=== PATIENT | female | born 1990 | race Caucasian/White ===

== ENCOUNTER 2016-07-30 22:23 | Emergency (ER) | payer MEDICAID, OTHER ==
[~2016-07-30] VITALS: Ht 165.1 cm; Wt 118.0 kg
[~2016-07-30 22:23] MED LIST: ACET325T40 PO; HYDR-3498 PO; PRENAT PO
[2016-07-30 22:41] VITALS: Ht 165.1 cm; Wt 118.0 kg
[2016-07-30] MEDS ORDERED: IBUP-1542 PO (23:27)
[2016-07-30] MEDS ORDERED: GUAI120S26 PO (23:27)
[2016-07-30] MEDS ORDERED: CETI10CA PO (23:27)
--- NOTE | 2016-07-31 | ERD ---
ER Documentation Chief Complaint Date/Time DATE: 07/30/16 TIME: 23:58 Chief Complaint SORE THROAT AND BILATERAL EAR PAIN X 1 WEEK HPI 6-year-old female presents here in emergency department for complaints of sore throat and bilateral ear pain, dry cough, for 1 week. Patient doesn't inject cough, does not cough up any phlegm or blood. Patient does not have any shortness breath or wheezing. Patient is complaining of sore throat, complaints of postnasal drip, burning pain, 4/10 scale, is worse upon swallowing. Patient is complaining of bilateral ear pain, throbbing pain, is congested, 4/10 scale, common mean other symptoms. Patient does not take any medication to help with symptoms. Patient's daughter also has the same symptoms. ROS All systems reviewed and are negative except as per history of present illness. Medications Home Meds Active Scripts Ibuprofen* (Motrin*) 600 Mg Tab, 600 MG PO Q6H Y for PAIN AND OR ELEVATED TEMP, #30 TAB Prov:CORRIE SHAIKH NP 07/30/16 Cetirizine Hcl* (Zyrtec*) 10 Mg Capsule, 10 MG PO DAILY, #30 TAB.CHEW Prov:CORRIE SHAIKH NP 07/30/16 Mlbxvnsrllk-E-Lazhsyvdtl Hb* (Guaifenesin* DM Syrup) 120 Ml Syrup, 10 ML PO Q4H Y for COUGH, #120 ML Prov:CORRIE SHAIKH NP 07/30/16 Hydrocodone Bit-Acetaminophen* ([place]*) 5-325 Mg Tab, 1 TAB PO q6h Y for PAIN LEVEL 6-10, #10 TAB Prov:KIEL CULLEN NP 04/05/15 Acetaminophen (MAPAP) 325 Mg Tab, 650 MG PO Q6H Y for PAIN LEVEL 1-3 OR FEVER, # 0 Prov:KIEL CULLEN NP 04/05/15 Reported Medications Multivit/Min/Fol Ac/Iron/Pren* ( S*) 1 Tab Tab, 1 TAB PO DAILY, TAB 04/03/15 Allergies Allergies: Coded Allergies: No Known Allergy (Unverified , 04/03/15) PMhx/Soc History of Surgery: Yes (cholecystectomy) Anesthesia Reaction: No Hx Neurological Disorder: No Hx Respiratory Disorders: No Hx Cardiac Disorders: No Hx Psychiatric Problems: No Hx Miscellaneous Medical Probl: No Hx Alcohol Use: No Hx Substance Use: No Hx Tobacco Use: No Smoking Status: Never smoker FmHx Family History: No coronary disease, No diabetes, No other Physical Exam Vitals Vital Signs Date Time Temp Pulse Resp B/P Pulse Ox O2 Delivery O2 Flow Rate FiO2 07/30/16 22:41 97.7 112 16 133/87 97 Physical Exam GENERAL: The patient is well developed and appropriate for usual state of health, in no apparent distress. HEENT: Atraumatic. Ears: Normal tympanic membrane, no erythema or bulging. No ear canal swelling. No ear discharge. Nose: Erythematous nasal turbinates with clear nasal discharge. Throat: oropharynx erythematous with postnasal drip. No tonsillar swelling or tonsillar exudates. No lymphadenopathy. CHEST: Clear to auscultation bilaterally. There are no rales, wheezes or rhonchi. HEART: Regular rate and rhythm. No murmurs, clicks, rubs or gallops. No S3 or S4. ABDOMEN: Soft, nontender and nondistended. Good bowel sounds. No rebound or guarding. No gross peritonitis. No gross organomegaly or masses. No Cervantes sign or McBurney point tenderness. BACK: No midline or flank tenderness. EXTREMITIES: Equal pulses bilaterally. There is no peripheral clubbing, cyanosis or edema. No focal swelling or erythema. Full range of motion. Grossly neurovascularly intact. NEURO: Alert and oriented. Cranial nerves 2-12 intact. Motor strength in all 4 extremities with 5/5 strength. Sensation grossly intact. Normal speech and gait. SKIN: There is no apparent rash or petechia. The skin is warm and dry. HEMATOLOGIC AND LYMPHATIC: There is no evidence of excessive bruising or lymphedema. No gross cervical, axillary, or inguinal lymphadenopathy. Procedures/MDM Medical Decision Making: Patient symptoms are most likely consistent with upper respiratory tract infection, which viral in origin. There is low suspicion for Pneumonia at this time since patients lungs sounds are clear, patient O2 saturation is normal and patient doesnt show any respiratory distress. Patients chest xray doesnt show infiltrates or any other cardiopulmonary emergencies at this time. There is low suspicion for other cardiopulmonary emergencies at this time such as CHF, Pulmonary Embolism, Pneumothorax,or any other cardiopulmonary emergencies at this time. There is low suspicion for sepsis. Patient appears well and is hemodynamically stable. Fever is controlled with medicines. Disposition: Home. Condition: Stable Prescriptions: Guaifenesin DM, Zofran, Zyrtec Instructions: Patient is advised to take medications as prescribed. Patient is advised to rest. Patient advised to increase fluid intake, do humidifier at home and if possible, do salt water gargles. Patient is advised that if symptoms are worse, shortness of breath, uncontrolled fever, stridor, vomiting, worst signs and symptoms to return to emergency department immediately. Otherwise, patient is advised to follow up with primary doctor in 5-7 days. Departure Diagnosis: Primary Impression: URI (upper respiratory infection) URI type: unspecified viral URI Qualified Code: J06.9 - Viral upper respiratory tract infection Condition: Stable Patient Instructions: Uri, Viral, No Abx (Adult) CORRIE SHAIKH NP Jul 31, 2016 00:00
== END 2016-07-30 23:55 | disposition home or self-care (01) ==
LOC: FTE 22:23
DX: J06.9 Acute upper respiratory infection, unspecified (principal)
CPT/HCPCS: 99283